=== PATIENT | female | born 1980 | race African-American/Black ===

== ENCOUNTER 2022-06-20 08:07 | Emergency (ER) | payer OTHER ==
[~2022-06-20] VITALS: Ht 152.4 cm; Wt 63.5 kg
[2022-06-20 08:13] VITALS: TEMP 98
[2022-06-20 08:56] LABS: PLATELET COUNT 325 K/uL (152-353)
[2022-06-20 09:01] LABS: POTASSIUM 3.5 mmol/L (3.6-5.2)
[2022-06-20 12:00] VITALS: BP 106/62
== END 2022-06-20 12:14 | disposition home or self-care (01) ==
LOC: ED 08:07
PROVIDERS: Emergency Medicine
DX: K52.89 Other specified noninfective gastroenteritis and colitis (principal); R51.9 Headache, unspecified
CPT/HCPCS: 80053; 81000; 81025; 82150; 83690; 85027; 96360; 96374; 96375; 96376; 99284; J2175; J2405; J7120; Q9963